=== PATIENT | male | born 1960 | race Caucasian/White ===

== ENCOUNTER 2017-09-02 07:23 | Day surgery (SDC) | payer OTHER ==
[~2017-09-02 07:23] MED LIST: Bupivacaine 0.25% 10 ML SDV INJECT ONE; Lactated Ringers 1,000 ML IV SCH; ceFAZolin 2 GM in Premix Bag 1 BAG IV ONE
[2017-09-02] MEDS ORDERED: Bupivacaine 0.25% 10 ML SDV ONE (07:35)
[2017-09-02] MEDS ORDERED: Propofol 200 MG/20 ML SDV ONE ×2 (07:38→11:04)
[2017-09-02] MEDS ORDERED: Lidocaine 2% 5 ML SDV ONE (07:38)
[2017-09-02] MEDS ORDERED: fentaNYL 100 MCG/2 ML SDV ONE (07:38)
[2017-09-02] MEDS ORDERED: Midazolam 1 MG/ML 2 ML SDV ONE (07:38)
[2017-09-02] MEDS ORDERED: fentaNYL 100 MCG/2 ML SDV IVPUSH PRN (07:44)
--- NOTE | 2017-09-02 08:04 | PCM.PREANE ---
Preanesthetic Assessment - Anesthesia/Transfusion/Family Hx Anesthesia History: Prior Anesthesia Without Reaction Family History of Anesthesia Reaction: No Transfusion History: No Prior Transfusion(s) - Review of Systems General: No Symptoms Pulmonary: No Symptoms Cardiovascular: No Symptoms Gastrointestinal: No Symptoms Neurological: No Symptoms Other: Reports: None - Physical Assessment NPO Status Date: 09/01/17 Height: 1.73 m Weight: 95.254 kg ASA Class: 1 Mental Status: Alert & Oriented x3 Airway Class: Mallampati = 1 Dentition: Reports: Dentures, Partial ROM/Head Extension: Full Lungs: Clear to Auscultation, Normal Respiratory Effort Cardiovascular: Regular Rate, Regular Rhythm - Allergies Allergies/Adverse Reactions: Allergies Allergy/AdvReac Type Severity Reaction Status Date / Time sulfamethoxazole Allergy Hives Verified 12/08/16 10:26 [From Bactrim] trimethoprim [From Bactrim] Allergy Hives Verified 12/08/16 10:26 bee stings Allergy Swelling Uncoded 12/08/16 10:26 - Anesthesia Plan Pre-Op Medication Ordered: None - Acknowledgements Anesthesia Type Planned: MAC Pt an Appropriate Candidate for the Planned Anesthesia: Yes Alternatives and Risks of Anesthesia Discussed w Pt/Guardian: Yes Pt/Guardian Understands and Agrees with Anesthesia Plan: Yes PreAnesthesia Questionnaire HEENT History: Reports: Other (See Below) Other HEENT History: wears glasses, has top denture and lower partial Cardiovascular History: Reports: None Respiratory History: Reports: Sleep Apnea Gastrointestinal History: Reports: GERD, Other (See Below) Other Gastrointestinal History: occasional heartburn Genitourinary History: Reports: None Musculoskeletal History: Reports: Back Pain, Chronic, Fracture Other Musculoskeletal History: hx herniated disc Neurological History: Reports: None Psychiatric History: Reports: None Endocrine/Metabolic History: Reports: Obesity/BMI 30+ Hematologic History: Reports: None - Past Surgical History Head Surgeries/Procedures: Reports: None HEENT Surgical History: GI Surgical History: Reports: Colonoscopy Musculoskeletal Surgical History: Reports: Arthroscopic Knee, Shoulder Surgery, Other (See Below) Other Musculoskeletal Surgeries/Procedures:: Right RTC repair x 2; left knee surgery for patellar fracture 25 years ago - History Comment History Comment: etoh "1x a month" - SUBSTANCE USE Smoking Status *Q: Former Smoker Tobacco Use Within Last Twelve Months: No Recreational Drug Use History: No - HOME MEDS Home Medications: Home Meds Ibuprofen 1 - 2 tab PO ASDIRECTED PRN 08/30/17 [History] - CURRENT (IN HOUSE) MEDS Current Meds: Current Medications Fentanyl (Sublimaze) 50 - 100 mcg IVPUSH Q5M PRN PRN Reason: Pain Stop: 09/02/17 11:44 Lactated Ringer's (Ringers, Lactated) 1,000 mls @ 125 mls/hr IV ASDIRECTED CANDELARIA Last Admin: 09/02/17 07:52 Dose: 125 mls/hr Discontinued Medications Bupivacaine HCl (Sensorcaine-Mpf 0.25%) 10 ml INJECT ONETIME ONE Stop: 08/30/17 12:44 Bupivacaine HCl (Sensorcaine-Mpf 0.25%) Confirm Administered Dose 20 ml .ROUTE .STK-MED ONE Stop: 09/02/17 07:36 Fentanyl (Sublimaze) Confirm Administered Dose 100 mcg .ROUTE .STK-MED ONE Stop: 09/02/17 07:39 Cefazolin Sodium/Dextrose 2 gm (/ Premix) 50 mls @ 100 mls/hr IV ONETIME ONE Stop: 08/30/17 13:12 Lidocaine (Xylocaine-Mpf 2%) Confirm Administered Dose 5 ml .ROUTE .STK-MED ONE Stop: 09/02/17 07:39 Midazolam HCl (Versed 1 Mg/Ml) Confirm Administered Dose 2 mg .ROUTE .STK-MED ONE Stop: 09/02/17 07:39 Propofol (Diprivan 20 Ml) Confirm Administered Dose 200 mg .ROUTE .STK-MED ONE Stop: 09/02/17 07:39
[2017-09-02] MEDS ORDERED: Ondansetron 4 MG/2 ML SDV ONE (08:55)
[2017-09-02] MEDS ORDERED: Ketorolac 30 MG/ML SDV ONE (08:55)
--- NOTE | 2017-09-02 09:37 | PCM.POSTAN ---
POST ANESTHESIA ASSESSMENT - MENTAL STATUS Mental Status: Alert, Oriented - RESPIRATORY Respiratory Status: Respiratory Rate WNL, Airway Patent, O2 Saturation Stable - CARDIOVASCULAR CV Status: Pulse Rate WNL, Blood Pressure Stable - GASTROINTESTINAL GI Status: No Symptoms - POST OP HYDRATION Hydration Status: Adequate & Stable
--- NOTE | 2017-09-02 09:38 | PCM48HPAN ---
Post Anesthesia Note - EVALUATION WITHIN 48HRS OF ANESTHETIC Vital Signs in Normal Range: Yes Patient Participated in Evaluation: Yes Respiratory Function Stable: Yes Airway Patent: Yes Cardiovascular Function Stable: Yes Hydration Status Stable: Yes Pain Control Satisfactory: Yes Nausea and Vomiting Control Satisfactory: Yes Mental Status Recovered: Yes
[2017-09-02 10:54] VITALS: BP 122/74
--- NOTE | 2017-09-07 20:16 | PCM.OPNOTE ---
- General Post-Op/Procedure Note Date of Surgery/Procedure: 09/02/17 Operative Procedure(s): right middle finger and ring finger trigger finger releases Pre Op Diagnosis: right middle finger and ring finger trigger finger Post-Op Diagnosis: right middle finger and ring finger trigger finger Anesthesia Technique: Local, MAC Primary Surgeon: Judy Lundy Technical Support Director: Halima Dawson Complications: None Condition: Good
--- NOTE | 2017-09-15 19:09 | OR ---
SURGEON: YAMILE RIVAS MD DATE OF PROCEDURE: 09/02/2017 PREOPERATIVE DIAGNOSIS: Right middle finger and ring finger trigger fingers. POSTOPERATIVE DIAGNOSIS: Right middle finger and ring finger trigger fingers. PROCEDURE: Right middle finger and ring finger trigger releases. ACC[employer]: SANDIP Celaya. REASON [employer] WAS NECESSARY: Retraction, prepping, and closure assistance. ANESTHESIA: Local MAC. INDICATIONS: Mr. Ramon is a 57-year-old gentleman seen today in evaluation for right middle finger and ring finger trigger finger releases. He has tried conservative management and failed and would like to proceed with surgery. Risks were including, but not limited to bleeding, infection, damage to underlying or overlying structures, possible need for future interventions, and possible scarring. He was in agreement to proceed. PROCEDURE IN DETAIL: After informed consent was obtained and placed on the chart, the patient was brought to the operating theater and laid in a supine position. After adequate local MAC anesthesia was obtained, the area was prepped and draped and a time- out was completed to confirm side and site. The arm was then exsanguinated, and the tourniquet was insufflated to 200 mmHg after local anesthesia infiltration. Attention was then paid to transverse incisions over the middle finger and the right ring finger. After adequate prepping, a #15 blade was used to dissect through the skin and then subcutaneous tissues using Littler scissors for spreading. The A1 niles was directly visualized and reached using a #15 blade and then dissected distally and proximally using a Littler scissor until the tendon was brought through full range of motion without any triggering or catching. After appropriate release was appreciated, the area was irrigated and closed using 5-0 nylon stitches in a horizontal mattress fashion. Attention was then paid to the ring finger in the exact same procedure as above. A separate incision was used and again closed using 5-0 nylon stitches in a horizontal mattress fashion. The two incisions were then dressed with Xeroform, fluffs, and a Kerlix gauze dressing and a 2-inch Jerry wrap for dressing. The patient tolerated this well. All counts and needles were correct at the end of the case. FOLLOWUP INSTRUCTIONS: The patient will see us in the clinic in 2 weeks for suture removal, sooner if any problems, questions, or concerns. He was given a prescription for [place] for pain control. HEGGTHE / MODL /[id number]
== END 2017-09-02 10:10 | disposition home or self-care (01) ==
LOC: MW.SDS 07:23
PROVIDERS: ATTEND Plastic Surgery
DX: M65.331 Trigger finger, right middle finger (principal); M65.341 Trigger finger, right ring finger; K21.9 Gastro-esophageal reflux disease without esophagitis; E66.9 Obesity, unspecified; Z68.31 Body mass index [BMI] 31.0-31.9, adult; Z87.891 Personal history of nicotine dependence; Z88.1 Allergy status to other antibiotic agents; Z91.030 Bee allergy status; Z88.2 Allergy status to sulfonamides
CPT/HCPCS: 26055; J1885; J2250; J2405; J3010; J7120; 01810; J2704

== ENCOUNTER 2021-02-06 16:39 | Emergency (ER) | payer BC ==
[2021-02-06] MEDS ORDERED: Aspirin 81 MG Tab.Chew PO ONE (17:01)
--- NOTE | 2021-02-06 17:13 | PCM.EKG ---
#1 Interpretation EKG Date: 02/06/21 Time: 16:45 Rhythm: NSR Rate (Beats/Min): 82 [place]: Normal P-Wave: Present QRS: Normal ST-T: Normal QT: Normal Comparison: NA - No Prior EKG EKG Interpretation Comments: Sinus Rhythm with T wave inversion lead III
[2021-02-06 17:42] LABS: BLOOD UREA NITROGEN,BUN 21 mg/dL (7.0-18.0); CARBON DIOXIDE,CO2 26.3 mmol/L (21.0-32.0); CHLORIDE,CL 103 mmol/L (98-107); GLUCOSE RANDOM 92 mg/dL (74-106); POTASSIUM,K 3.5 mmol/L (3.5-5.1); SODIUM,NA 140 mmol/L (136-148)
[2021-02-06 17:56] VITALS: PULSE 76
--- NOTE | 2021-02-06 18:06 | CR ---
INDICATION: Chest pain for 1 month TECHNIQUE: Chest radiograph 1 view COMPARISON: 12/18/2019 FINDINGS: Moderate degradation of image quality noted due to body habitus. Mediastinum: The mediastinum is normal in appearance. The heart silhouette is normal in size and morphology. Lung: Both lungs are unremarkable in appearance. No sign of pleural effusion seen. No pneumothorax is identified. Bone and Soft tissue: Unremarkable for age. IMPRESSION: 1. No acute cardiopulmonary disease is seen. Dictated by: Raymundo Smalls MD @ 02/06/2021 18:04:56 (Electronically Signed)
--- NOTE | 2021-02-06 18:41 | EDM.PDOC ---
ED HPI GENERAL MEDICAL PROBLEM - General Chief Complaint: Chest Pain Stated Complaint: CHEST PAINS Time Seen by Provider: 02/06/21 16:46 - History of Present Illness INITIAL COMMENTS - FREE TEXT/NARRATIVE: CHIEF COMPLAINT(S): Chest pain HISTORY OF PRESENT ILLNESS: This is a 61-year-old man without any reported past medical history who comes to the emergency department with a chief complaint of chest pain. The patient states that off and on for approximately 1 month now he has been experiencing left-sided chest pain which he describes as sharp and intermittent lasting approximately 10 to 15 seconds and resolving on its own. He states that this pain is rated 1 out of 10 when it happens. He states that the pain is not exacerbated by exertion or movement. He states that it just happens randomly. He denies any associated shortness of breath, diaphoresis, nausea. He denies any radiation of this pain. He states that the only other symptom he has is exertional fatigue. He states that now when he works he does become fatigued but denies any exertional chest pain. He states that he did have some posterior rib dislocations for which he went to the chiropractor for and was thinking that the chest pain might be because of that however he decided to come into get it evaluated. He denies any personal history of CAD or CHF. He does have a family history of CAD and CHF in his parents. He denies any recent travel, recent surgery, prior history of DVT or PE. REVIEW OF SYSTEMS: Constitutional: Positive for fatigue denies fever, chills. Eyes: Denies eye pain Ears, Nose, Mouth, & Throat: Denies earache Cardiovascular: Positive for intermittent left-sided chest pain Respiratory: Denies shortness of breath Gastrointestinal: Denies Nausea, vomiting, diarrhea, hematochezia. Genitourinary: Denies hematuria Skin:Denies a rash MSK: Denies joint pain Neurological: Denies blurred vision Psychiatric: Denies depression PAST MEDICAL HISTORY: As per history of present illness and as reviewed below otherwise noncontributory. SURGICAL HISTORY: As per history of present illness and as reviewed below otherwise noncontributory. SOCIAL HISTORY: As per history of present illness and as reviewed below otherwise noncontributory. FAMILY HISTORY: As per history of present illness and as reviewed below otherwise noncontributory. EXAMINATION OF ORGAN SYSTEMS/BODY AREAS: Constitutional: Blood pressure is 153/96, heart rate 86, respiratory rate 16 with an oxygen saturation of 97% on room air. Temperature 36.4 General: Overall well-appearing man who is in no acute distress Psychiatric: Appropriate mood and affect. Eyes: No scleral icterus or conjunctival erythema ENMT: Moist mucous membranes. No pharyngeal erythema Cardiovascular: Regular, rate, and rhythm. No gallops, murmurs, or rubs. Bilateral upper extremity pulses symmetric and intact. No peripheral edema. No JVD. Respiratory: Lungs clear to auscultation bilaterally. No wheezes, rales, or rhonchi. Gastrointestinal: Soft, non-tender, non-distended. Normoactive bowel sounds Genitourinary: No suprapubic tenderness Musculoskeletal: Normal range of motion. Skin: No lesions or abrasions. Neurological: Alert, GCS 15 strength and sensation grossly intact in upper and lower extremities bilaterally. MEDICAL DECISION MAKING AND COURSE IN THE ED WITH INTERPRETATION/REVIEW OF DIAGNOSTIC STUDIES: This is a 61-year-old and without any significant past medical history who comes to the emergency department with intermittent left- sided sharp chest pain and exertional fatigue over the last 1 month who overall appears well and is mildly hypertensive. At this time given his age and mild hypertension here we will undergo a cardiac work-up. EKG was obtained which did not reveal any acute signs of ischemia. Will obtain a cardiac work-up. I will provide the patient with aspirin by mouth. Differential includes musculoskeletal strain versus spasm, ACS, pneumonia, pneumothorax. Only 1 troponin is needed given the duration of the patient's symptoms. Heart Score History: Slightly or Non-Suspicious (0) ECG: Non-specific repolarization (1) Age: 45-64 (1) Risk Factors: No known risk factors (0) Initial Troponin: </= normal limit (0) Total Score: 2 -Low risk Wells Criteria Clinical signs/symptoms of DVT: No (0) PE #1 Dx or equally likely: No (0) Heart Rate >100: No (0) Immobilization for 3 days or surgery in last month: No (0) Previously Dx PE or DVT: No (0) Hemoptysis: No (0) Malignancy w/ Tx within 6 months or palliative: No (0) Wells Score: 0 -> Low risk no need for further workup Laboratory: CBC is unremarkable. BMP reveals mildly elevated BUN at 21 otherwise unremarkable. Magnesium is normal at 1.9. Troponin is negative. The radiological images were viewed by myself along with reading the report from the radiologist. Chest x-ray does not reveal any acute cardiopulmonary process. After labs and imaging I did discuss the results with the patient. I did discuss them symptomatic treatment including Tylenol, Motrin, topical creams and stretching exercises for possible muscle spasm. I did discuss with him that given his age and his mild hypertension here today I would like him to follow-up with cardiology given his family history of CAD. We will place him on the callback list. I did discuss that if he had any new or worsening symptoms he should return to the emergency department. He was amenable discharge at this time and had no further questions DISPOSITION: The patient was discharged home in stable condition. The patient will follow up with cardiology within 1 to 3 days CONDITION: Fair PROCEDURES: None FINAL IMPRESSION(S)/DIAGNOSES: 1. Acute left-sided atypical chest pain 2. Subacute exertional fatigue Shelton Ellington M.D. chest Pain Score (Numeric/FACES): 1 - Related Data Allergies Allergy/AdvReac Type Severity Reaction Status Date / Time sulfamethoxazole Allergy Hives Verified 02/06/21 16:59 [From Bactrim] trimethoprim [From Bactrim] Allergy Hives Verified 02/06/21 16:59 bee stings Allergy Shortness Uncoded 02/06/21 16:59 of Breath Home Meds: Home Meds . [No Known Home Meds] 02/06/21 [History] Past Medical History - Past Health History Medical/Surgical History: Denies Medical/Surgical History HEENT History: Reports: Other (See Below) Other HEENT History: wears glasses/contacts - has upper denture and partial removable lower denture Cardiovascular History: Reports: None Respiratory History: Reports: Sleep Apnea Other Respiratory History: uses CPAP Gastrointestinal History: Reports: Other (See Below) Other Gastrointestinal History: occasional heartburn Genitourinary History: Reports: None Musculoskeletal History: Reports: Back Pain, Chronic Other Musculoskeletal History: has had compression fx of vertebrate Neurological History: Reports: None Psychiatric History: Reports: Anxiety Endocrine/Metabolic History: Reports: Obesity/BMI 30+ Hematologic History: Reports: None - Past Surgical History Head Surgeries/Procedures: Reports: None HEENT Surgical History: Reports: Other (See Below) GI Surgical History: Reports: Colonoscopy Musculoskeletal Surgical History: Reports: Arthroscopic Knee, Shoulder Surgery, Other (See Below) Other Musculoskeletal Surgeries/Procedures:: hx of left knee arthroscopy, left RTCR, right RTCR x2, hx of trigger finger release right hand - History Comment History Comment: etoh "1x a month" Social & Family History - Family History Family Medical History: No Pertinent Family History - Tobacco Use Tobacco Use Status *Q: Never Tobacco User - Recreational Drug Use Recreational Drug Use: No ED ROS GENERAL - Review of Systems Review Of Systems: See Below ED EXAM, GENERAL - Physical Exam Exam: See Below Course - Vital Signs Last Recorded V/S: Last Vital Signs Temp 36.4 C 02/06/21 16:58 Pulse 76 02/06/21 18:57 Resp 16 02/06/21 18:57 BP 150/88 H 02/06/21 18:57 Pulse Ox 96 02/06/21 18:57 - Orders/Labs/Meds Labs: Laboratory Tests 02/06/21 02/06/21 Range/Units 17:00 17:00 WBC 9.37 (4.0-11.0) K/uL RBC 5.09 (4.50-5.90) M/uL Hgb 15.8 (13.0-17.0) g/dL Hct 45.6 (38.0-50.0) % MCV 89.6 (80.0-98.0) fL MCH 31.0 (27.0-32.0) pg MCHC 34.6 (31.0-37.0) g/dL RDW Std Deviation 44.4 (28.0-62.0) fl RDW Coeff of Sixto 14 (11.0-15.0) % Plt Count 214 (150-400) K/uL MPV 10.00 (7.40-12.00) fL Neut % (Auto) 58.9 (48.0-80.0) % Lymph % (Auto) 28.3 (16.0-40.0) % [place] % (Auto) 9.7 (0.0-15.0) % Eos % (Auto) 2.6 (0.0-7.0) % Baso % (Auto) 0.5 (0.0-1.5) % Neut # (Auto) 5.5 (1.4-5.7) K/uL Lymph # (Auto) 2.7 H (0.6-2.4) K/uL [place] # (Auto) 0.9 H (0.0-0.8) K/uL Eos # (Auto) 0.2 (0.0-0.7) K/uL Baso # (Auto) 0.1 (0.0-0.1) K/uL Nucleated RBC % 0.0 /100WBC Nucleated RBCs # 0 K/uL Sodium 140 (136-148) mmol/L Potassium 3.5 (3.5-5.1) mmol/L Chloride 103 (98-107) mmol/L Carbon Dioxide 26.3 (21.0-32.0) mmol/L BUN 21 H (7.0-18.0) mg/dL Creatinine 1.3 (0.8-1.3) mg/dL Est Cr Clr Drug Dosing 54.38 mL/min Estimated GFR (MDRD) 55.8 ml/min Glucose 92 (74-106) mg/dL Calcium 8.8 (8.5-10.1) mg/dL Magnesium 1.9 (1.8-2.4) mg/dL Troponin I < 0.050 (0.000-0.056) ng/mL Meds: Medications Discontinued Medications Generic Name Dose Route Start Last Admin Trade Name Stefanoq PRN Reason Stop Dose Admin Aspirin 324 mg 02/06/21 17:01 02/06/21 17:21 Aspirin 81 Mg Tab.Chew PO 02/06/21 17:02 324 mg ONETIME ONE Administration Departure - Departure Time of Disposition: 18:40 Disposition: Home, Self-Care 01 Condition: Fair Clinical Impression: Atypical chest pain, Muscle strain - Discharge Information *PRESCRIPTION DRUG MONITORING PROGRAM REVIEWED*: No *COPY OF PRESCRIPTION DRUG MONITORING REPORT IN PATIENT DELBERT: No Instructions: Chest Wall Pain, [id number], Nonspecific Chest Pain, Adult, [id number] Referrals: Shelia Hendrickson PA [Primary Care Provider] - Abhijeet Lara MD [Physician] - Forms: ED Department Discharge Additional Instructions: You were evaluated today on an emergent basis. At this time your work-up was negative. As discussed I recommend Tylenol and Motrin for pain relief and do the stretches as discussed. Given your fatigue that has been going on this could be an atypical presentation of angina as we discussed. I do recommend that you follow-up with cardiology within 1 to [address] you on the cardiac callback list. If they do not contact you please contact the number in your discharge paperwork. Remember if the chest pain gets more severe, you start having more symptoms as you work, become sweaty or have any vomiting please return to the emergency department. Please use: Tylenol 500-1000mg every 6 hours (DO NOT TAKE MORE THAN 4000mg in 1 day) Ibuprofen 400mg every 6 hours (Take with food as it can cause ulcers, GI upset) Example schedule: 8:00 AM (Tylenol 500-1000mg) 11:00 AM (Ibuprofen 400mg) 2:00 PM (Tylenol 500-1000mg) 5:00 PM (Ibuprofen 400mg) In addition to Tylenol and Motrin you may use over the counter creams such as Voltaren Cream or Lidocaine Cream (Lidoderm) as needed 4 times a day for symptomatic relief. Ice the area 20 minutes 4 times per day [facility] [address] [place], [place] [id number] [place] [address] The patient is informed of any results of their evaluation and diagnostic workup and all questions are answered. They are given discharge instructions and return precautions. The patient is stable for discharge. The patient states they understand and agree with the plan and that they will return if their symptoms get worse or if they have any new concerns. The following information is given to patients seen in the emergency department who are being discharged to home. This information is to outline your options for follow-up care. We provide all patients seen in our emergency department with a follow-up referral. The need for follow-up, as well as the timing and circumstances, are variable depending upon the specifics of your emergency department visit. If you don't have a primary care physician on staff, we will provide you with a referral. We always advise you to contact your personal physician following an emergency department visit to inform them of the circumstance of the visit and for follow-up with them and/or the need for any referrals to a consulting specialist. The emergency department will also refer you to a specialist when appropriate. This referral assures that you have the opportunity for follow-up care with a specialist. All of these measure are taken in an effort to provide you with optimal care, which includes your follow-up. Under all circumstances we always encourage you to contact your private physician who remains a resource for coordinating your care. When calling for follow-up care, please make the office aware that this follow-up is from your recent emergency room visit. If for any reason you are refused follow-up, please contact the [facility] Emergency Department at and asked to speak to the emergency department charge nurse. Sepsis Event Note (ED) - Evaluation Sepsis Screening Result: No Definite Risk - Focused Exam Vital Signs: Vital Signs Temp Pulse Resp BP Pulse Ox 02/06/21 18:57 76 16 150/88 H 96 02/06/21 17:55 76 16 156/84 H 95 02/06/21 16:58 36.4 C 220 H 16 153/96 H 97
[2021-02-06 18:57] VITALS: BP 150/88
== END 2021-02-06 18:59 | disposition home or self-care (01) ==
LOC: MW.ED 16:39
DX: S29.011A Strain of muscle and tendon of front wall of thorax, initial encounter (principal); E66.9 Obesity, unspecified; R53.83 Other fatigue; Z88.1 Allergy status to other antibiotic agents; Z91.030 Bee allergy status; Z68.34 Body mass index [BMI] 34.0-34.9, adult; X58.XXXA Exposure to other specified factors, initial encounter
CPT/HCPCS: 36415; 71045; 80048; 83735; 84484; 85025; 93005; 99285; A9270; 99284

== ENCOUNTER 2021-10-14 06:33 | Day surgery (SDC) | payer BC ==
[~2021-10-14 06:33] MED LIST changes: +Albuterol 0.083% 2.5 MG/3 ML Neb Soln NEB PRN; -Bupivacaine 0.25% 10 ML SDV INJECT ONE; +HYDROmorphone 1 MG/ML Syringe IVPUSH PRN; +Metoclopramide 10 MG/2 ML SDV IVPUSH PRN; +Morphine 2 MG/ML SYRINGE IVPUSH PRN; +Naloxone 0.4 MG/ML SDV IVPUSH PRN; +Ondansetron 4 MG/2 ML SDV IVPUSH PRN; -ceFAZolin 2 GM in Premix Bag 1 BAG IV ONE; +fentaNYL 100 MCG/2 ML SDV IVPUSH PRN
[2021-10-14] MEDS ORDERED: propofoL 100 ML ONE (07:15)
[2021-10-14] MEDS ORDERED: Lidocaine 2% 100 MG/5 ML Syringe ONE (07:16)
[2021-10-14] MEDS ORDERED: fentaNYL 100 MCG/2 ML SDV ONE (07:16)
[2021-10-14] MEDS ORDERED: Bupivacaine 25%/EPINEPHrine/PF 30 ML ONE (07:35)
[2021-10-14] MEDS ORDERED: Ketamine 500 mg/10 ML MDV ONE (07:57)
[2021-10-14] MEDS ORDERED: ceFAZolin 2 GM in Premix Bag 1 BAG IV SCH (08:00)
[2021-10-14] MEDS ORDERED: Dexamethasone 4 MG/ML 5 ML MDV ONE (08:08)
[2021-10-14] MEDS ORDERED: Morphine 4 MG/ML VIAL ONE ×2 (08:10)
[2021-10-14] MEDS ORDERED: Metoclopramide 10 MG/2 ML SDV ONE (08:20)
[2021-10-14] MEDS ORDERED: Ketorolac 30 MG/ML SDV ONE (08:31)
[2021-10-14 10:40] VITALS: BP 112/57; PULSE 65
== END 2021-10-14 10:39 | disposition home or self-care (01) ==
LOC: MW.SDS 06:33
PROVIDERS: ATTEND Orthopaedic Surgery
DX: S83.231A Complex tear of medial meniscus, current injury, right knee, initial encounter (principal); M10.9 Gout, unspecified; E66.9 Obesity, unspecified; F32.A Depression, unspecified; G47.30 Sleep apnea, unspecified; Z79.899 Other long term (current) drug therapy; Z88.2 Allergy status to sulfonamides; Z88.8 Allergy status to other drugs, medicaments and biological substances; Z91.030 Bee allergy status; Z98.890 Other specified postprocedural states; Z87.891 Personal history of nicotine dependence
CPT/HCPCS: 29881; J0131; J1100; J1885; J2270; J2704; J2765; J3010; J7120; 01400

== ENCOUNTER 2022-04-14 10:12 | Day surgery (SDC) | payer BC ==
[~2022-04-14 10:12] MED LIST changes: -Albuterol 0.083% 2.5 MG/3 ML Neb Soln NEB PRN; -HYDROmorphone 1 MG/ML Syringe IVPUSH PRN; +Lidocaine 2% 5 ML SDV ONE; -Metoclopramide 10 MG/2 ML SDV IVPUSH PRN; -Morphine 2 MG/ML SYRINGE IVPUSH PRN; -Naloxone 0.4 MG/ML SDV IVPUSH PRN; -Ondansetron 4 MG/2 ML SDV IVPUSH PRN; +Propofol 200 MG/20 ML SDV ONE; -fentaNYL 100 MCG/2 ML SDV IVPUSH PRN; +fentaNYL 100 MCG/2 ML SDV ONE
[2022-04-14 13:49] VITALS: BP 117/77; PULSE 63
== END 2022-04-14 14:05 | disposition home or self-care (01) ==
LOC: MW.SDS 10:12
PROVIDERS: ATTEND Surgery
DX: Z12.11 Encounter for screening for malignant neoplasm of colon (principal); K57.30 Diverticulosis of large intestine without perforation or abscess without bleeding; E66.9 Obesity, unspecified; Z68.30 Body mass index [BMI] 30.0-30.9, adult; Z86.010 Personal history of colon polyps; Z88.2 Allergy status to sulfonamides; Z98.890 Other specified postprocedural states; Z87.891 Personal history of nicotine dependence; Z79.899 Other long term (current) drug therapy; Z79.891 Long term (current) use of opiate analgesic
CPT/HCPCS: 00812; J2704; J3010; J7120

== ENCOUNTER 2023-02-05 17:32 | Emergency (ER) | payer BC, OTHER ==
[2023-02-05] MEDS ORDERED: Ketorolac 30 MG/ML SDV IVPUSH ONE ×2 (19:17→21:03)
[2023-02-05] MEDS ORDERED: Acetaminophen/Butalbital/Caffeine 325-50-40 MG Tab PO ONE (19:18)
[2023-02-05 19:44] LABS: BASOPHILS PERCENT AUTO 0.4 % (0.0-1.5); EOSINOPHILS ABSOLUTE AUTO 0.3 K/uL (0.0-0.7); EOSINOPHILS PERCENT AUTO 2.6 % (0.0-7.0); HEMATOCRIT 45.5 % (38.0-50.0); HEMOGLOBIN 15.8 g/dL (13.0-17.0); LYMPHOCYTES ABSOLUTE AUTO 1.9 K/uL (0.6-2.4); LYMPHOCYTES PERCENT AUTO 19.1 % (16.0-40.0); MEAN CORPUSCULAR HEMOGLOBIN 30.2 pg (27.0-32.0); MEAN CORPUSCULAR HGB CONC 34.7 g/dL (31.0-37.0); MONOCYTES ABSOLUTE AUTO 0.8 K/uL (0.0-0.8); MONOCYTES PERCENT AUTO 8.2 % (0.0-15.0); NEUTROPHILS ABSOLUTE AUTO 6.9 K/uL (1.4-5.7); NEUTROPHILS PERCENT AUTO 69.7 % (48.0-80.0); NRBC ABSOLUTE 0 K/uL; PLATELET COUNT,PLT 226 K/uL (150-400); RED BLOOD CELL COUNT 5.23 M/uL (4.50-5.90); WHITE BLOOD CELL COUNT,WBC 9.85 K/uL (4.0-11.0)
[2023-02-05 20:06] LABS: INR 0.99 (0.86-1.11); PTT,PARTIAL THROMBOPLSTIN TIME 29.3 SEC (23.9-30.7)
[2023-02-05 20:12] LABS: A/G RATIO 0.9 (0.9-1.6); ALBUMIN 3.8 g/dL (3.4-5.0); BILIRUBIN TOTAL 0.5 mg/dL (0.2-1.0); CALCIUM 8.6 mg/dL (8.5-10.1); CARBON DIOXIDE,CO2 26.8 mmol/L (21.0-32.0); CREATININE 1.2 mg/dL (0.8-1.3); EST CRCL DRUG DOSING (CG) 57.38 mL/min; POTASSIUM,K 4.1 mmol/L (3.5-5.1)
[2023-02-05] MEDS ORDERED: Iopamidol 755 MG/ML 500 ML Multipack Bottle IVPUSH ONE (20:47)
[2023-02-05] MEDS ORDERED: Diazepam 5 MG Tab PO ONE (21:52)
[2023-02-05 22:01] VITALS: BP 150/89; PULSE 74
== END 2023-02-05 22:04 | disposition home or self-care (01) ==
LOC: MW.ED 17:32
DX: I65.22 Occlusion and stenosis of left carotid artery (principal); M62.838 Other muscle spasm; R51.9 Headache, unspecified; E66.9 Obesity, unspecified; Z88.1 Allergy status to other antibiotic agents; Z91.030 Bee allergy status; Z68.32 Body mass index [BMI] 32.0-32.9, adult
CPT/HCPCS: 36415; 70450; 70496; 70498; 80053; 85025; 85610; 85730; 96374; 96375; 99284; A9270; J1885; J3360; Q9967